=== PATIENT | male | born 1960 | race African-American/Black ===

== ENCOUNTER 2022-03-30 18:03 | Emergency (ER) | payer OTHER, MEDICARE, MEDICAID, SELFPAY ==
[2022-03-30 18:11] VITALS: BP 156/84; PULSE 83; RESP 18; TEMP 37.2; O2SAT 99
--- NOTE | 2022-03-30 19:31 | PC.NURSE ---
patient states his feet got wet in the snow a few weeks ago and they hurt from that. no sign of open wound or cracks to feet. no redness noted.
--- NOTE | 2022-03-30 19:34 | ED.GENADULT ---
HPI - General Adult General Chief complaint: Extremity Problem,Nontraumatic Stated complaint: bilateral leg pain Time Seen by Provider: 03/30/22 19:25 Source: patient Mode of arrival: ambulatory Limitations: no limitations History of Present Illness HPI narrative: Patient is a 61-year-old male presenting to the emergency department for evaluation of bilateral feet pain. Patient reports his feet have been sore for many weeks after initially being exposed to snow. Patient states that initially occurred many months ago. Patient has been ambulatory. He reports aching, sore sensation in his feet. He denies any areas of sores or redness. He reports mild amount of swelling in his ankles. He denies calf pain or bruising. He denies recent fall or injury. Patient states that he has clean shoes and socks to wear. He denies weakness or numbness. Patient denies fever, chills, chest pain, shortness of breath. Patient is homeless, states that he has had no meals to eat today, also requesting some food. Patient has not seen a primary care physician in many years. Patient denies taking any [id number] medications for his symptoms. Related Data Allergies Allergy/AdvReac Type Severity Reaction Status Date / Time No Known Allergies Allergy Verified 03/30/22 19:51 Review of Systems Review of Systems: CONSTITUTIONAL: Denies fever CARDIOVASCULAR: Denies chest pain RESPIRATORY: Denies cough or dyspnea. GASTROINTESTINAL: Denies abdominal pain SKIN: Denies rash, denies wound, scaling of skin, denies bruising MUSCULOSKELETAL: Denies back pain, reports bilateral foot pain NEUROLOGIC: Denies headache PMFSH Past Medical History Medical History (Updated 03/30/22 @ 19:58 by Ashley Bradshaw MD) Homelessness No pertinent past medical history Surgical History Surgical History (Updated 03/30/22 @ 19:49 by Ashley Bradshaw MD) No pertinent past surgical history Social History Social History (Updated 03/30/22 @ 19:49 by Ashley Bradshaw MD) Smoking status: Former smoker Alcohol intake: never Substance use: never Living arrangements: homeless Gender identity (if verbalized by the patient): Male Exam Narrative: GENERAL: Awake, alert, conversant HEAD: Normocephalic, atraumatic. EYES: PERRLA and EOMI. ENT: Nares clear, no rhinorrhea or epistaxis. Mucous membranes moist. NECK: Supple. CHEST: No respiratory distress, breathing even and non labored HEART: Regular rate, sinus rhythm ABDOMEN:Non distended, non tender EXTREMITIES: Normal range of motion. Patient with mild, nonpitting edema to the ankles bilaterally. No ecchymosis. Intact distal sensation. Extremities are warm and well-perfused. Patient is ambulatory with a normal gait. SKIN: Warm, dry, no rash. There are no areas of bruising, erythema, scaling skin, wound. NEURO:No focal deficits. Alert and oriented x3 Course Vital Signs Vital signs: Vital Signs Temperature 37.2 C 03/30/22 18:11 Pulse Rate 83 03/30/22 18:11 Respiratory Rate 18 03/30/22 18:11 Blood Pressure 156/84 H 03/30/22 18:11 Pulse Oximetry 99 03/30/22 18:11 Temperature 37.2 C 03/30/22 18:11 Pulse Rate 83 03/30/22 18:11 Respiratory Rate 18 03/30/22 18:11 Blood Pressure 156/84 H 03/30/22 18:11 Pulse Oximetry 99 03/30/22 18:11 Medical Decision Making MDM Narrative Medical decision making narrative: Patient presenting for evaluation of myalgias of both feet. Patient is amatory, states he walks many miles daily secondary to his homelessness. No difficulty with ambulation. He does have mild nonpitting edema on exam that does seem related to chronic venous stasis changes. He has some mild scaling of skin but no blistering or cellulitic changes. No evidence of abscess. No areas of necrosis. The feet are warm and well perfused with palpable pulses bilaterally. There is no pitting edema and patient has no dyspnea, cough to be suggestive of acute CHF exac
[2022-03-30] MEDS: ACETAMINOPHEN 500 MG TABLET 1000 MG PO (19:50)
[2022-03-30] MEDS: Please add drug allergy info to patient profile. 1 EACH XX (19:50)
[2022-03-30] MEDS: IBUPROFEN 400 MG TABLET PO (19:50)
== END 2022-03-30 20:37 | disposition home or self-care (01) ==
PROVIDERS: Emergency Provider Emergency Medicine
DX: I87.8 Other specified disorders of veins (principal); M79.672 Pain in left foot; M79.671 Pain in right foot; Z59.00 Homelessness unspecified; Z87.891 Personal history of nicotine dependence
CPT/HCPCS: 99283; A9270

== ENCOUNTER 2022-03-31 06:09 | Emergency (ER) | payer OTHER, MEDICARE, MEDICAID, SELFPAY ==
[2022-03-31 06:21] VITALS: BP 156/70; PULSE 110; RESP 18; TEMP 36.2; O2SAT 100
--- NOTE | 2022-03-31 07:22 | ED.LOWEXIN ---
HPI - Extremity Injury (Lower) General Chief Complaint: Extremity Injury, Lower Stated Complaint: Leg Weakness Time Seen by Provider: 03/31/22 07:21 Source: patient History of Present Illness HPI Narrative: Patient presented to the ED with weakness of the legs. Patient was discharged and less than 8 hours ago from our emergency room, he came because of leg weakness, patient is homeless, temperature is 24 Fahrenheit at this time. Patient was discharged with a diagnosis of chronic venous stasis dermatitis, ibuprofen and Tylenol Related Data Allergies Allergy/AdvReac Type Severity Reaction Status Date / Time No Known Allergies Allergy Verified 03/31/22 06:14 Review of Systems Review of Systems: All systems reviewed & are unremarkable except as noted in HPI and below PMFSH Past Medical History Medical History Homelessness No pertinent past medical history Surgical History Surgical History No pertinent past surgical history Social History Social History Smoking status: Former smoker Alcohol intake: never Substance use: never Gender identity (if verbalized by the patient): Male Exam Narrative: General appearance: Well-developed, well-nourished Skin: Normal color Head: Normocephalic, nontraumatic Eyes: Clear conjunctiva ENT: Oropharynx normal, ears normal, nose normal Neck: Supple, nontender Chest and respiratory: Airway patent, no respiratory distress, no accessory muscle use Heart: Regular rate/rhythm Abdomen: Soft, nontender, no organomegaly, quiet bowel sounds Vascular: Normal peripheral pulses, normal capillary refill. Musculoskeletal: Chronic bilateral stasis dermatitis Neurologic: Alert and oriented ?3, SCOUT LEASER is normal as tested, no gross motor deficit Course Course Emergency Course: The plan to transfer patient to half-way, because unable to take care of himself, homeless, cold weather. Vital Signs Vital signs: Vital Signs Temperature 36.2 C L 03/31/22 06:21 Pulse Rate 110 H 03/31/22 06:21 Respiratory Rate 18 03/31/22 06:21 Blood Pressure 156/70 H 03/31/22 06:21 Pulse Oximetry 100 03/31/22 06:21 Temperature 36.2 C L 03/31/22 06:21 Pulse Rate 110 H 03/31/22 06:21 Respiratory Rate 18 03/31/22 06:21 Blood Pressure 156/70 H 03/31/22 06:21 Pulse Oximetry 100 03/31/22 06:21 Oxygen Delivery Room Air 03/31/22 09:39 MDM - Extremity Injury (Lower) Lab Data Labs: Lab Results 03/31/22 Range/Units 11:19 SARS-CoV-2 RNA (RT-PCR) Pending Critical Care Time Critical Care Time Critical Care Time: Yes Total Critical Care Time: 10 Discharge Plan Discharge Clinical Impression: Homelessness Patient Disposition: NH Detention/Asst Living Condition: Stable Instructions: Antibiotic Form Additional Instructions: Transfer to half-way Prescriptions: No Action ibuprofen 400 mg tablet 400 mg PO TID PRN (Reason: fever or pain) 10 Days Qty: 30 0RF acetaminophen 500 mg capsule 500 mg PO Q6H PRN (Reason: fever or pain) Qty: 30 0RF Follow-up/Referrals: PHYSICIAN,MAINTENANCE FOREMAN [Primary Care Provider] -
--- NOTE | 2022-03-31 09:04 | PC.NURSE ---
case management in at bedside.
--- NOTE | 2022-03-31 10:00 | PC.NURSE ---
pt resting comfortably on stretcher. no distress noted.
[2022-03-31 12:02] LABS: SARS-CoV-2 RNA PCR Negative
--- NOTE | 2022-03-31 13:12 | PC.NURSE ---
pt declined by nursing facility d/t being on sexual predator list made patient care director aware
--- NOTE | 2022-03-31 14:21 | PCCCNOTE ---
Addendum entered by Lenore Urrutia RN 03/31/22 15:23: with further investigation, this patient is NOT a registered Sex offender. There is a male with several alias names that is the sex offender. this patient is . At this time patient would like to go to the [facility] in [place]. Original Note: met with patient bedside. patient is alert and oriented x 4, I ADL and is homeless. Patient would like to be placed in a SNF. CC has PT/OT evals and faxed referrals to [facility]. Both had initially accepted patient, did the background check and patient was found, per Sonia at facility, to be a registered sex offender and have several alias names. With that background, unfortunately the facilities are not longer able to accept patient. CC informed patient of this. Patient stated he is not a sex offender. CC asked patient where he would like to dc to. Patient would like to go to [place]. CC provided patient with cab voucher to [address] [place] [id number]. that is to a [facility]. CC will continue to follow for any needs that may arise.
--- NOTE | 2022-03-31 14:41 | PC.NURSE ---
pt to be discharged via cab to [facility]. pt dc with multiple snalck bags to eat and drink
== END 2022-03-31 14:40 | disposition home or self-care (01) ==
PROVIDERS: Emergency Provider Emergency Medicine
DX: R53.1 Weakness (principal); Z20.822 Contact with and (suspected) exposure to COVID-19; Z59.00 Homelessness unspecified
CPT/HCPCS: 97161; 97165; 99283; U0003; U0005

== ENCOUNTER 2023-04-30 17:57 | Emergency (ER) | payer MEDICARE, MEDICAID, SELFPAY ==
[2023-04-30 18:20] VITALS: BP 154/94; PULSE 86; RESP 20; TEMP 37.2; O2SAT 98
[2023-04-30 21:48] VITALS: BP 151/91; PULSE 106; RESP 17; TEMP 36.6; O2SAT 100
[2023-04-30 21:52] LABS: Basophils Absolute Auto 0.1 K/mm3 (0.0-0.1); Basophils Percent Auto 0.7 % (0.2-1.2); Eosinophils Absolute Auto 0.1 K/mm3 (0-0.3); Eosinophils Percent Auto 1.4 % (0-4.4); Hematocrit 44.8 % (42.0-52.0); Hemoglobin 14.4 g/dL (14.0-18.0); Immature Granulocyte Absolute 0.01 K/mm3 (0.00-0.031); Immature Granulocyte Percent A 0.1 % (0-0.5); Lymphocytes Absolute Auto 3.11 K/mm3 (0.9-3.2); Lymphocytes Percent Auto 43.9 % (18.3-44.2); Mean Corpuscular HGB Conc 32.1 g/dl (32-36); Mean Corpuscular Hemoglobin 29.4 pg (26-34); Mean Corpuscular Volume 91.6 fl (80-100); Mean Platelet Volume 8.4 fl (7.4-10.4); Monocytes Absolute Auto 0.7 K/mm3 (0.1-0.6); Monocytes Percent Auto 10.3 % (2.6-8.5); Neutrophils Absolute Auto 3.1 K/mm3 (1.3-6.7); Neutrophils Percent Auto 43.6 % (45.5-73.1); Platelet Count Result 424 k/mm3 (150-375); Red Blood Count 4.89 M/mm3 (4.6-6.20); Red Cell Distribution Width 14.5 % (11.5-14.5); White Blood Count 7.1 K/mm3 (4.5-10.0)
[2023-04-30 22:09] LABS: Alanine Aminotransferase 15 U/L (6-50); Alkaline Phosphatase 66 U/L (38-126); Anion Gap 4 mmol/L (8-16); Aspartate Amino Transferase 27 U/L (17-59); Bilirubin,Total 0.4 mg/dL (0.2-1.3); Blood Urea Nitrogen 26 mg/dL (9-20); Calcium 9.5 mg/dL (8.4-10.2); Carbon Dioxide 30 mmol/L (22-30); Chloride 102 mmol/L (98-107); Estimated CRCL calculation 74 ml/min; Estimated Glomerular Filt Rate > 60; Glucose 98 mg/dL (65-110); Lipase 83 U/L (23-300); Potassium 4.7 mmol/L (3.4-5.0); Sodium 136 mmol/L (137-145)
--- NOTE | 2023-04-30 22:53 | ED.GENADULT ---
[facility] General Adult General Chief complaint: Abdominal Pain Stated complaint: stomach and bilat foot pain Time Seen by Provider: 04/30/23 22:02 Source: patient Mode of arrival: ambulatory Limitations: no limitations History of Present Illness HPI narrative: This is a 63-year-old male who presents to the ED with multiple complaints. Reports abdominal cramping, low back and extremity body aches. Reports he has also had some dry cough and sinus congestion. Reports some sore throat that has resolved. Endorses occasional chills. denies fevers, chest pain, shortness breath, significant abdominal pain, diarrhea, vomiting, nausea, neck pain. Related Data Allergies Allergy/AdvReac Type Severity Reaction Status Date / Time No Known Allergies Allergy Verified 04/30/23 18:28 Review of Systems Review of Systems: All systems as dictated in [facility] Past Medical History Medical History Homelessness No pertinent past medical history Surgical History Surgical History No pertinent past surgical history Social History Social History Smoking status: Former smoker Alcohol intake: never Substance use: never Living arrangements: homeless Gender identity (if verbalized by the patient): Male Exam Narrative: GENERAL: Well-appearing, well-nourished, and in no acute distress. HEAD: Normocephalic, atraumatic. EYES: PERRLA and EOMI. ENT: Nares clear, no rhinorrhea or epistaxis. Mucous membranes moist. Oropharynx without tonsillar hypertrophy exudate or other lesions. NECK: Supple. No adenopathy or masses. CHEST: No respiratory distress. Clear to auscultation. No wheezes rales or rhonchi HEART: Regular rate and rhythm. No murmur heard. Normal peripheral pulses. ABDOMEN: Soft, nontender, nondistended, normal active bowel sounds. MSK: Normal range of motion. No edema. No spinal or flank tenderness. SKIN: Warm, dry, no rash. NEURO: Alert and oriented x3. No focal deficits. PSYCH: Normal mood and affect. Course Vital Signs Vital signs: Vital Signs Temperature 99.0 F 04/30/23 18:20 Pulse Rate 86 04/30/23 18:20 Respiratory Rate 20 04/30/23 18:20 Blood Pressure 154/94 H 04/30/23 18:20 Pulse Oximetry 98 04/30/23 18:20 Oxygen Delivery Room Air 04/30/23 18:20 Temperature 97.9 F 04/30/23 21:48 Pulse Rate 93 05/01/23 00:41 Respiratory Rate 14 05/01/23 00:41 Blood Pressure 146/87 H 05/01/23 00:41 Pulse Oximetry 97 05/01/23 00:41 Oxygen Delivery Room Air 04/30/23 18:20 Medical Decision Making MDM Narrative Medical decision making narrative: This is a 63-year-old male who presents to the ED with URI symptoms for the past 2 days. Vitals are normal. Oxygen saturation 90% room air. Exam is overall intact. Lab work unremarkable. Viral swabs positive for COVID. Presentation consistent with viral syndrome. Pt will be discharged in stable condition. Return precautions given and supportive measures discussed. Pt is understanding and agreeable with plan for discharge and follow-up with PCP. Vital Signs Vital Signs: Vital Signs Temperature 99.0 F 04/30/23 18:20 Pulse Rate 86 04/30/23 18:20 Respiratory Rate 20 04/30/23 18:20 Blood Pressure 154/94 H 04/30/23 18:20 Pulse Oximetry 98 04/30/23 18:20 Oxygen Delivery Room Air 04/30/23 18:20 Temperature 97.9 F 04/30/23 21:48 Pulse Rate 93 05/01/23 00:41 Respiratory Rate 14 05/01/23 00:41 Blood Pressure 146/87 H 05/01/23 00:41 Pulse Oximetry 97 05/01/23 00:41 Oxygen Delivery Room Air 04/30/23 18:20 Lab Data 04/30/23 21:46 04/30/23 21:46 Labs: Lab Results 04/30/23 04/30/23 Range/Units 21:46 23:23 WBC 7.1 (4.5-10.0) K/mm3 RBC 4.89 (4.6-6.20) M/mm3 Hgb 14.4 (14.0-18.0) g/dL
[2023-04-30] MEDS: SODIUM CHLORIDE 0.9% IV 1,000 ML 999 ML IV CONT (23:35)
[2023-05-01 00:12] LABS: Influenza A QL RT-PCR Negative (Negative); Influenza B QL RT-PCR Negative (Negative); RSV RNA, RT-PCR Negative (Negative); SARS-CoV-2 RNA PCR Positive (Negative)
[2023-05-01 00:28] LABS: Bacteria Urine None Seen /hpf; Non Pathogenic Casts 0-2; RBC Urine 0-2 /hpf (0-2); Squamous Epithelial Cell Urine None seen /hpf (Few); WBC Urine 0-5 /hpf
[2023-05-01 00:41] VITALS: BP 146/87; PULSE 93; RESP 14; O2SAT 97
[2023-05-01 00:41] LABS: Appearance Urine Clear (Clear); Color Urine Yellow (Yellow)
[2023-05-01 00:42] LABS: Bilirubin Urine Negative (Negative); Blood Urine Negative (Negative); Glucose Urine UA Negative (Negative); Ketones Urine Negative (Negative); Nitrate Urine Negative (Negative); Protein Urine Negative (Negative); Specific Grav Ur 1.025 (1.001-1.035)
[2023-05-01 00:43] LABS: Add Urine Microscopic? NO; Leukocyte Esterase Ur Negative LEU/UL (Negative)
== END 2023-05-01 00:49 | disposition home or self-care (01) ==
PROVIDERS: Emergency Medicine; Emergency Provider Physician Assistant
DX: U07.1 COVID-19 (principal); Z87.891 Personal history of nicotine dependence
CPT/HCPCS: 36415; 80053; 81003; 83690; 85025; 87637; 96360; 99283; J7030